=== PATIENT | female | born 1995 | race Caucasian/White ===

== ENCOUNTER 2021-05-08 15:13 | Emergency (ER) | payer OTHER, SELFPAY ==
[2021-05-08 15:23] VITALS: BP 100/57; PULSE 93; RESP 16; TEMP 36.6; O2SAT 100
--- NOTE | 2021-05-08 15:25 | ED.DENTAL ---
HPI - Dental/Oral General Chief complaint: Dental/Oral Stated complaint: toothache/el Source: patient and RN notes reviewed Limitations: no limitations History of Present Illness HPI Narrative: The patient, a smoker/nondrinker, presents with tooth ache. Patient states she has 1/2-week worsening of half year history of intermittent left upper and fourth molar discomfort. No fever, hoarseness, trismus, visible swelling; symptoms are mild and she has a dental appointment in the next week or 2. Related Data Allergies Allergy/AdvReac Type Severity Reaction Status Date / Time No Known Allergies Allergy Verified 05/08/21 15:26 Review of Systems Review of Systems: General/Constitutional: No weight loss,fever Eyes: N0: Redness,discharge Ears/Nose/Throat: No: Epistaxis,ear discharge Respiratory: Denies: Hemoptysis Gastrointestinal: No Vomiting, Bleeding-rectal Skin: No Lumps, eruption Neurologic: No Focal Weakness,Sz Hematologic: Denies: Petechiae/Purpura Psychiatric: No: Suicida ideationl All Other Systems: Reviewed and Negative PMFSH Social History Social History Smoking status: Current every day smoker Alcohol intake: never Comments At time of signature, agree with nursing past medical, surgical, social and family history. There is no relevant family history pertinent to the presenting complaint Exam Narrative: General Appearance: Well appearing, Well nourished, EYE: PERRLA, EOMI, Conjunctiva clear Ears: External ear normal, Auditory canal normal Nose: Normal nose Mouth/Throat: Normal appearing (with out jaw swelling), Normal lips, MM moist, Uvula midline (scattered dental caries and fillings,, with rare fracture) Neck: Supple, No adenopathy Respiratory: Airway patent, No respiratory distress, Clear to auscultation Cardiovascular: RRR Musculoskeletal: Full ROM, Non tender, Normal strength Spine/Back: Normal ROM Skin: Warm, Dry, Normal color Neurological: A&O x3, Speech clear, CN II-XII intact Psychiatric: Normal mood, Normal affect Course Vital Signs Vital signs: Vital Signs Temperature 98 F 05/08/21 15:23 Pulse Rate 93 05/08/21 15:23 Respiratory Rate 16 05/08/21 15:23 Blood Pressure 100/57 L 05/08/21 15:23 Pulse Oximetry 100 05/08/21 15:23 Temperature 98 F 05/08/21 15:23 Pulse Rate 93 05/08/21 15:23 Respiratory Rate 16 05/08/21 15:23 Blood Pressure 100/57 L 05/08/21 15:23 Pulse Oximetry 100 05/08/21 15:23 Discharge Plan Discharge Clinical Impression: Gingivitis, Toothache Patient Disposition: Home, Self-Care Condition: Stable Instructions: Toothache (ED) Prescriptions: New lidocaine HCl [Lidocaine Viscous] 2 % solution 5 ml MUCOUS MEM QID PRN (Reason: pain) Qty: 100 RF: 0 amoxicillin 875 mg tablet 875 mg PO Q12H Qty: 14 RF: 0 xayvmyetys-cxlzrjvhuqrgn-aydy [Fioricet] 50-300-40 mg capsule 1 cap PO TID PRN (Reason: pain) Qty: 14 RF: 0 Follow-up/Referrals: UNKNOWN,DOCTOR [Primary Care Provider] -
== END 2021-05-08 15:36 | disposition home or self-care (01) ==
LOC: EXPGLEN 15:18
PROVIDERS: Emergency Provider Emergency Medicine
DX: K08.89 Other specified disorders of teeth and supporting structures (principal); K05.10 Chronic gingivitis, plaque induced; F17.200 Nicotine dependence, unspecified, uncomplicated
CPT/HCPCS: 99213; G0463

== ENCOUNTER 2023-10-18 08:55 | Observation (INO) | payer OTHER, SELFPAY ==
[2023-10-18] VITALS (37 sets, daily range): BP systolic 96–116; BP diastolic 52–81; PULSE 68–103; RESP 12–29; TEMP 36.6–36.8; O2SAT 91–100
--- NOTE | ~2023-10-18 | US_ITS ---
EXAMINATION: US abdomen limited DATE: 10/18/2023 09:49 INDICATION: Right upper quadrant abdominal tenderness. TECHNIQUE: Multiple grayscale and Doppler ultrasound images of the abdomen were obtained. COMPARISON: CT abdomen and pelvis 02/05/2014 FINDINGS: The visualized portions of the head, body, and tail of the pancreas are normal. Again seen is focal steatosis adjacent to the falciform ligament. There is normal flow in main portal vein. The gallbladder is normal in size and contains sludge. No gallstones or gallbladder wall thickening. Ther e is no sonographic Fuentes sign. The common duct is normal and measures 4 mm. IMPRESSION: 1. No evidence of acute cholecystitis. Reviewed, dictated and finalized at location [facility]. [facility]
--- NOTE | ~2023-10-18 | US_ITS ---
EXAMINATION: US OB <= 14 weeks fetus DATE: 10/18/2023 09:49 INDICATION: Abdominal pain with nausea and vomiting during the transition from the first the second t ester of TECHNIQUE: Real-time pelvic ultrasound utilizing transabdominal probe was performed. The james mejia radiologist was not present for the study. COMPARISON: None. FINDINGS: The uterus measures approximately 14 x 9 x 11 cm. There is an intrauterine gestational sac. Single l iving fetus within the gestational sac. The crown rump length measures 6.0 cm, which correlates with an estimated gestational age of 12 weeks and 4 days. heart motion is identified measuring 148 b eats per minute (bpm) by M-mode Doppler. Bilateral adnexa are unremarkable. There is no free fluid in the pelvis. IMPRESSION: 1. Single living fetus with heart rate of 148 bpm. 2. Gestational age by ultrasound of 12 weeks 4 day(s) +/- 1 week and 1 day with ultrasound estimated date of delivery ([facility]) of 04/27/2024. Reviewed, dictated and finalized at location A. [facility] IMPRESSION: 1. Single living fetus with heart rate of 148 bpm. 2. Gestational age by ultrasound of 12 weeks 4 day(s) +/- 1 week and 1 day wit h ultrasound estimated date of delivery ([facility]) of 04/27/2024.
--- NOTE | 2023-10-18 09:17 | ED.GENADULT ---
HPI - General Adult General Chief complaint: Abdominal Pain <VIK Suggs Last Filed: 10/18/23 14:14> Stated complaint: abd pain, 12 weeks preg <VIK Suggs Last Filed: 10/18/23 14:14> Time Seen by Provider: 10/18/23 09:00 <Mukesh Trotter PA-C - Last Filed: 10/18/23 14:14> Source: patient <VIK Suggs Last Filed: 10/18/23 14:14> Mode of arrival: ambulatory <VIK Suggs Filed: 10/18/23 14:14> Limitations: no limitations <VIK Suggs Filed: 10/18/23 14:14> History of Present Illness HPI narrative: This is a 27-year-old female who is approximately 12 weeks who presents to the ED for chief complaint of abdominal pain for the past 3 days. Reports intermittent in nature and usually located in the left upper quadrant. Reports that it radiates to the back. Rates the pain 4 or 5/10. Associated with nausea and many episodes of vomiting per day. Denies vaginal bleeding, vaginal discharge. Denies urinary symptoms. States she feels very dehydrated with decreased bowel movements and decreased urinary output. Denies numbness, weakness, urinary symptoms. She reports history of pancreatitis during her last and states this feels similar. She follows with OB Dr. Wang in [place]. <Mukesh Trotter PA-C - Last Filed: 10/18/23 14:14> Related Data Home medications: Home Medications Medication Instructions Recorded Confirmed No Home Medications 10/18/23 10/18/23 <VIK Suggs Last Filed: 10/18/23 14:14> Allergies/adverse reactions: Allergies Allergy/AdvReac Type Severity Reaction Status Date / Time No Known Allergies Allergy Verified 09/29/23 09:30 <VIK Suggs Last Filed: 10/18/23 14:14> Review of Systems Review of Systems: All systems as dictated in HPI <VIK Suggs Last Filed: 10/18/23 14:14> [facility] Surgical History Surgical History: Surgical History H/O eye surgery as child <Mukesh Trotter PA-C - Last Filed: 10/18/23 14:14> Social History Social History: Social History Smoking status: Former smoker Tobacco type: cigarettes Second hand tobacco smoke exposure: No Smoking end date: 08/29/23 Alcohol intake: never Substance use: never Substance use type: marijuana Other substance usage details: daily Do You Feel Safe in your Home?: Yes Lack of Transportation: No Lack of Food: Never True Current Housing: I Have Housing Concerned About Future Housing: No Difficulty Paying Gas/Electric Bills: No Difficulty Paying for Meds: No Currently Unemployed: No Education: High School Diploma/GED Difficulty w/ Childcare or Family Care: No Living arrangements: other Additional living arrangements comments: single Occupation/Education: occupation Additional occupation/education comments: stay at home mom Gender identity (if verbalized by the patient): Female Sexual Orientation (if Verbalized by the Patient): Straight or Heterosexual Spiritual care concerns: No <Mukesh Trotter PA-C - Last Filed: 10/18/23 14:14> Exam Narrative: GENERAL: Well-appearing, well-nourished, and in no acute distress. HEAD: Normocephalic, atraumatic. EYES: PERRLA and EOMI. ENT: Nares clear, no rhinorrhea or epistaxis. Mucous membranes moist. Oropharynx without tonsillar hypertrophy exudate or other lesions. NECK: Supple. No adenopathy or masses. CHEST: No respiratory distress. Clear to auscultation. No wheezes rales or rhonchi HEART: Regular rate and rhythm. No murmur heard. Normal peripheral pulses. ABDOMEN: Moderate right upper quadrant and left upper quadrant tenderness. Soft, nondistended, normal active bowel sounds. MSK: Normal range of motion. No edema. SKIN: Warm, dry, no rash. NEURO: Alert and oriented x3. No
[2023-10-18] MEDS: ONDANSETRON INJ 4 MG/2 ML VIAL IV PUSH ×2 (09:42→15:27)
[2023-10-18] MEDS: SODIUM CHLORIDE 0.9% IV 1,000 ML 999 ML IV CONT ×2 (09:42→10:25)
[2023-10-18 09:48] LABS: Basophils Percent Auto 0.1 % (0.2-1.2); Eosinophils Percent Auto 0.1 % (0-4.4); Hematocrit 43.5 % (37.0-47.0); Hemoglobin 15.1 g/dL (12.0-15.0); Immature Granulocyte Absolute 0.07 K/mm3 (0.00-0.031); Immature Granulocyte Percent A 0.4 % (0-0.5); Lymphocytes Absolute Auto 2.64 K/mm3 (0.9-3.2); Lymphocytes Percent Auto 16.2 % (18.3-44.2); Mean Corpuscular HGB Conc 34.7 g/dl (32-36); Mean Corpuscular Hemoglobin 30.1 pg (26-34); Mean Corpuscular Volume 86.8 fl (80-100); Mean Platelet Volume 9.9 fl (7.4-10.4); Monocytes Absolute Auto 1.8 K/mm3 (0.1-0.6); Monocytes Percent Auto 10.9 % (2.6-8.5); Neutrophils Absolute Auto 11.8 K/mm3 (1.3-6.7); Neutrophils Percent Auto 72.3 % (45.5-73.1); Platelet Count Result 323 k/mm3 (150-375); Red Blood Count 5.01 M/mm3 (4.2-5.4); Red Cell Distribution Width 11.9 % (11.5-14.5); White Blood Count 16.3 K/mm3 (4.5-10.0)
[2023-10-18 10:03] LABS: Alanine Aminotransferase 50 U/L (6-35); Albumin Level 5.1 g/dL (3.5-5.1); Alkaline Phosphatase 55 U/L (38-126); Anion Gap 11 mmol/L (8-16); Aspartate Amino Transferase 41 U/L (14-36); Bilirubin,Total 1.4 mg/dL (0.2-1.3); Blood Urea Nitrogen 23 mg/dL (7-17); Calcium 10.1 mg/dL (8.4-10.2); Carbon Dioxide 38 mmol/L (22-30); Chloride 77 mmol/L (98-107); Estimated Glomerular Filt Rate > 60; Glucose 123 mg/dL (65-110); Lipase 121 U/L (23-300); Potassium 2.1 mmol/L (3.4-5.0); Sodium 126 mmol/L (137-145)
--- NOTE | 2023-10-18 10:03 | ECG_ITS ---
Measurements Intervals [place] Rate: 74 P: 66 VA: 168 QRS: 36 QRSD: 90 T: 31 QT: 394 QTc: 440 Interpretive Statements SINUS RHYTHM POSSIBLE LEFT ATRIAL ENLARGEMENT [-0.1mV P-WAVE IN V1/V2] NO PREVIOUS ECG AVAILABLE FOR COMPARISON Electronically Signed On 10-18-2023 13:51:29 ANALYTICAL LAB TECHNICIAN by Amrik Moise M.D.
[2023-10-18] MEDS: POTASSIUM CHLORIDE INJ 40 MEQ in SODIUM CHLORIDE 0.9% IV 500 ML 130 MEQ IVPB ×2 (10:26→18:13)
[2023-10-18] MEDS: MORPHINE SULFATE (*CRX) 4 MG/ML INJ IV PUSH ×2 (10:30→15:51)
[2023-10-18 11:09] LABS: Appearance Urine Cloudy (Clear); Bacteria Urine Rare /hpf; Bilirubin Urine 1+ (Negative); Blood Urine Negative (Negative); Color Urine Dark Yellow (Yellow); Glucose Urine UA Negative (Negative); Ketones Urine 3+ mg/dL (Negative); Leukocyte Esterase Ur Negative LEU/UL (Negative); Mucus Urine Present /lpf; Need Manual Microscopic Reviewed; Nitrate Urine Negative (Negative); Non Pathogenic Casts >20; Protein Urine 2+ mg/dL (Negative); Specific Grav Ur 1.028 (1.001-1.035); Squamous Epithelial Cell Urine Moderate /hpf (Few)
[2023-10-18 11:13] LABS: Add Urine Microscopic? YES
[2023-10-18] MEDS: SODIUM CHLORIDE 0.9% IV 1,000 ML 30 ML IV CONT (11:46)
[2023-10-18] MEDS: SODIUM CHLORIDE 0.9% IV 1,000 ML 125 ML IV CONT (15:28)
[2023-10-18 17:02] LABS: Potassium 2.5 mmol/L (3.4-5.0)
--- NOTE | 2023-10-18 17:04 | PM.CNGS ---
Assessment and Plan Assessment and plan (1) Abdominal pain: Code(s): R10.9 - Unspecified abdominal pain Status: Acute Assessment and Plan: LUQ abdominal pain during at 12 weeks gestation. Unclear etiology. US does not suggest acute cholecystitis and she is not having RUQ abdominal pain or tenderness. It is more LUQ pain and tenderness, which would be atypical for a biliary cause. Agree with IV antibiotics and monitoring. Will allow a clear liquid diet and can advance as tolerated if her nausea improves. Repeat labs again tomorrow. (2) Gallbladder sludge: Code(s): K82.8 - Other specified diseases of gallbladder Status: Acute Assessment and Plan: Noted on ultrasound with no other findings to suggest acute cholecystitis. (3) Elevated liver enzymes: Code(s): R74.8 - Abnormal levels of other serum enzymes Status: Acute (4) Acute hypokalemia: Code(s): E87.6 - Hypokalemia Status: Acute Assessment and Plan: Potassium 2.1, she is receiving replacement IV, continue to monitor labs and replace as needed (5) Dehydration: Code(s): E86.0 - Dehydration Status: Acute Assessment and Plan: Continue IV fluids, monitor labs Plan I have discussed the patient's case and plan of care with Dr. Lugo. History of Present Illness Consult details Consult date: 10/18/23 Reason for consult: other (Right upper quadrant abdominal pain) Requesting physician: Mukesh Trotter PA-C Narrative: This is a 27-year-old woman who is 12 weeks gestation, who we have been asked to see for right upper quadrant abdominal pain. She reports noticing pain that is worse at night. This has been ongoing for about 2-3 days. She has not eaten in 2-3 days due to the pain. She reports to me that her pain is in the epigastric area and left upper quadrant, and radiates to her mid back. She reports nausea and vomiting multiple times per day. She reports having similar pain in the past when she had pancreatitis in 2020 during a . At that time, they were unsure of the cause of her pancreatitis. She denies having a known history of gallstones or sludge. Due to her persistent symptoms and inability to eat or drink, she presented to the ER for further evaluation today. [place] [address], potassium 2.1, sodium 126, chloride 77, carbon dioxide 38, BUN 23, creatinine 0.9, total bilirubin 1.4, AST 41, ALT 50, alk-phos 55, and lipase 121. Urinalysis does not suggest UTI. Right upper quadrant abdominal ultrasound shows gallbladder sludge, but no other abnormal findings of the gallbladder or evidence to suggest acute cholecystitis. Normal common bile duct. No sonographic Fuentes sign. She is seen in the ER. She reports her abdominal pain has improved. No other complaints at this time. Review of Systems Review of Systems: All systems reviewed & are unremarkable except as noted in HPI and below [facility] Surgical History Surgical History H/O eye surgery as child Social History Social History Smoking status: Former smoker Tobacco type: cigarettes Second hand tobacco smoke exposure: No Smoking end date: 08/29/23 Alcohol intake: never Substance use: never Substance use type: marijuana Other substance usage details: daily Do You Feel Safe in your Home?: Yes Lack of Transportation: No Lack of Food: Never True Current Housing: I Have Housing Concerned About Future Housing: No Difficulty Paying Gas/Electric Bills: No Difficulty Paying for Meds: No Currently Unemployed: No Education: High School Diploma/GED Difficulty w/ Childcare or Family Care: No Living arrangements: other Additional living arrangements comments: single Occupation/Education: occupation Additional occupation/education comments: stay at home mom
--- NOTE | 2023-10-18 17:08 | PM.IMHP ---
H&P: HPI History of Present Illness Date/Time: 10/18/23 17:08 Chief Complaint: N/V, Abdominal Pain Narrative: 27 y/o F presents here with upper abdominal pain with PMH IUGR and pancreatitis. Currently . Patient presents here with upper abdominal pain, nausea, vomiting, and dehydration for the past 3 days. Patient described abdominal pain as achy/burning/full sensation, intermittent, worse in the LUQ than the RUQ, and radiating into her mid back on the right. No alleviating or aggravating factors. Patient is currently with LMP of 07/22/23. . Receiving care with [facility], first visit on 09/29/23 - considering switch to an OB in [place]. Previous hx of IUGR, baby was delivered at [facility] and weighed close to 5 lbs. No currently experiencing any vaginal bleeding or discharge, no odor, no painful intercourse. No fever, chills, or body aches. Patient does not remember what type of food/meal she ate prior to onset of abdominal pain. No changes in her stool color. Last BM was 2 days ago, stool was hard/pellet like. Also endorsing generalized weakness and palpitations. Initial VS upon presentation: 97.8 F, HR 91, RR 16, 116/81, 100% on RA. ED workup showed moderate leukocytosis with WBC of 16.3, mildly elevated hemoglobin at 15.1, sodium of 126, potassium 2.1, creatinine 0.9, glucose 123, mildly elevated LFTs, lipase 121, UA not suggestive of UTI. US of Abdomen showed no evidence of acute cholecystitis. US showed single living fetus, arch are 148, gestational age by U/S 12 weeks for 4 days with DILLON of 04/27/2024. Review of Systems Review of Systems: All systems reviewed & are unremarkable except as noted in HPI and below PMFSH Surgical History Surgical History H/O eye surgery as child Social History Social History Smoking status: Former smoker Tobacco type: cigarettes Second hand tobacco smoke exposure: No Smoking end date: 08/29/23 Alcohol intake: never Substance use: never Substance use type: marijuana Other substance usage details: daily Do You Feel Safe in your Home?: Yes Lack of Transportation: No Lack of Food: Never True Current Housing: I Have Housing Concerned About Future Housing: No Difficulty Paying Gas/Electric Bills: No Difficulty Paying for Meds: No Currently Unemployed: No Education: High School Diploma/GED Difficulty w/ Childcare or Family Care: No Living arrangements: other Additional living arrangements comments: single Occupation/Education: occupation Additional occupation/education comments: stay at home mom Gender identity (if verbalized by the patient): Female Sexual Orientation (if Verbalized by the Patient): Straight or Heterosexual Spiritual care concerns: No Meds Home Medications and Allergies Home Medications Medication Instructions Recorded Confirmed Type No Home Medications 10/18/23 10/18/23 History Allergies Allergy/AdvReac Type Severity Reaction Status Date / Time No Known Allergies Allergy Verified 09/29/23 09:30 Vital Signs Vital Signs - 24 hr 10/18/23 08:59 10/18/23 11:05 10/18/23 08:58 Temperature 97.8 F Pulse Rate 91 72 Respiratory Rate 16 Blood Pressure 116/81 Pulse Oximetry 100 91 Oxygen Delivery Room Air 10/18/23 09:00 10/18/23 09:01 10/18/23 10:05 Temperature Pulse Rate 103 H Respiratory Rate 29 H Blood Pressure 116/81 112/80 Pulse Oximetry 99 Oxygen Delivery 10/18/23 10:15 10/18/23 10:30 10/18/23 10:32 Temperature Pulse Rate 75 84 90 Respiratory Rate 12 17 12 Blood Pressure 114/72 Pulse Oximetry Oxygen Delivery 10/18/23 10:45 10/18/23 11:00 10/18/23 11:01 Temperature Pulse Rate 90 75 72 Respiratory Rate 15 19 17 Blood Pressure 109/64 Pulse Oximetry Oxygen Delivery 10/18/23 11:02
[2023-10-18] MEDS: POTASSIUM CHLORIDE 20 MEQ PACKET (FOR LIQUID) 40 MEQ PO (17:39)
[2023-10-18] MEDS: PIPERACILLN/TAZ 3.375GM/NS50ML 3.375 GM/50 ML BAG IVPB ×2 (17:39→23:50)
--- NOTE | 2023-10-18 18:27 | WPDCN ---
Assessment and Plan Assessment and plan (1) Abdominal pain: Code(s): R10.9 - Unspecified abdominal pain Status: Acute (2) Dehydration: Code(s): E86.0 - Dehydration Status: Acute (3) Gallbladder sludge: Code(s): K82.8 - Other specified diseases of gallbladder Status: Acute Plan 1. Continue with IV hydration and electrolyte normalization 2. Continue diet as tolerated 3. Will add Pepcid current medications 4. No further need for obstetrical evaluation/treatment 5. Will f/u after d/c with patient...at present she is unsure if she will have PNC with us or in [facility] Data of Consult Date/Time: 10/18/23 18:27 Requesting Physician: Bert Eckert MD Primary Care Provider: Mansoor Wang, Consult Narrative Narrative: Naima King is a 27 year old female 3 para 2001 currently at 12 weeks gestation. Admitted through the emergency room with nausea and vomiting and abdominal pain. Ultrasound of gallbladder did not show any significant abnormalities, but due to continued pain and electrolyte abnormalities admitted for hydration and pain control. Seen earlier in emergency room with urinary tract infection which resolved nicely with antibiotics. Last office visit approximately 2 weeks ago at that time was doing well. Review of Systems Review of Systems: All systems reviewed & are unremarkable except as noted in HPI and below PMFSH Surgical History Surgical History H/O eye surgery as child Social History Social History Smoking status: Former smoker Tobacco type: cigarettes Second hand tobacco smoke exposure: No Smoking end date: 08/29/23 Alcohol intake: never Substance use: never Substance use type: marijuana Other substance usage details: daily Do You Feel Safe in your Home?: Yes Lack of Transportation: No Lack of Food: Never True Current Housing: I Have Housing Concerned About Future Housing: No Difficulty Paying Gas/Electric Bills: No Difficulty Paying for Meds: No Currently Unemployed: No Education: High School Diploma/GED Difficulty w/ Childcare or Family Care: No Living arrangements: other Additional living arrangements comments: single Occupation/Education: occupation Additional occupation/education comments: stay at home mom Gender identity (if verbalized by the patient): Female Sexual Orientation (if Verbalized by the Patient): Straight or Heterosexual Spiritual care concerns: No Meds Home Medications and Allergies Home Medications Medication Instructions Recorded Confirmed Type No Home Medications 10/18/23 10/18/23 History Allergies Allergy/AdvReac Type Severity Reaction Status Date / Time No Known Allergies Allergy Verified 09/29/23 09:30 Vital Signs Vital Signs - 24 hr 10/18/23 08:59 10/18/23 11:05 10/18/23 08:58 Temperature 97.8 F Pulse Rate 91 72 Respiratory Rate 16 Blood Pressure 116/81 Pulse Oximetry 100 91 Oxygen Delivery Room Air 10/18/23 09:00 10/18/23 09:01 10/18/23 10:05 Temperature Pulse Rate 103 H Respiratory Rate 29 H Blood Pressure 116/81 112/80 Pulse Oximetry 99 Oxygen Delivery 10/18/23 10:15 10/18/23 10:30 10/18/23 10:32 Temperature Pulse Rate 75 84 90 Respiratory Rate 12 17 12 Blood Pressure 114/72 Pulse Oximetry Oxygen Delivery 10/18/23 10:45 10/18/23 11:00 10/18/23 11:01 Temperature Pulse Rate 90 75 72 Respiratory Rate 15 19 17 Blood Pressure 109/64 Pulse Oximetry Oxygen Delivery 10/18/23 11:02 10/18/23 11:15 10/18/23 11:30 Temperature Pulse Rate 71 68 70 Respiratory Rate 17 22 H 19 Blood Pressure Pulse Oximetry Oxygen Delivery 10/18/23 11:31 10/18/23 11:45 10/18/23 12:00 Temperature Pulse Rate 71 71 71 Respiratory
[2023-10-18 20:29] LABS: Magnesium 2.4 mg/dL (1.6-2.3)
[2023-10-18] MEDS: FAMOTIDINE 20 MG TABLET PO (21:46)
[2023-10-18] MEDS: DOCUSATE SODIUM 100 MG CAPSULE PO (21:46)
[2023-10-18 22:50] LABS: Anion Gap 3 mmol/L (8-16); Blood Urea Nitrogen 12 mg/dL (7-17); Carbon Dioxide 28 mmol/L (22-30); Chloride 98 mmol/L (98-107); Estimated Glomerular Filt Rate > 60; Glucose 94 mg/dL (65-110); Potassium 2.9 mmol/L (3.4-5.0); Sodium 129 mmol/L (137-145)
[2023-10-18] MEDS: MORPHINE SULFATE (*CRX) 2 MG/ML INJ IV PUSH (23:49)
[2023-10-18] MEDS: CALCIUM CARBONATE (TUMS) 500 MG (200 MG ELEMENTAL) PO (23:49)
[2023-10-19] VITALS (9 sets, daily range): BP systolic 106–121; BP diastolic 55–80; PULSE 59–96; RESP 17–20; TEMP 36.8–36.9; O2SAT 100
[2023-10-19] MEDS: diphenhydrAMINE HCl INJ 50 MG/ML VIAL 25 MG IV PUSH ×2 (04:31→20:16)
[2023-10-19] MEDS: PIPERACILLN/TAZ 3.375GM/NS50ML 3.375 GM/50 ML BAG IVPB ×4 (05:24→23:28)
[2023-10-19] MEDS: SODIUM CHLORIDE 0.9% IV 1,000 ML 125 ML IV CONT ×2 (05:24→23:28)
[2023-10-19] MEDS: ONDANSETRON INJ 4 MG/2 ML VIAL IV PUSH ×3 (05:24→23:32)
[2023-10-19 05:39] LABS: Basophils Percent Auto 0.2 % (0.2-1.2); Eosinophils Percent Auto 0.2 % (0-4.4); Hematocrit 33.6 % (37.0-47.0); Hemoglobin 11.2 g/dL (12.0-15.0); Immature Granulocyte Absolute 0.06 K/mm3 (0.00-0.031); Immature Granulocyte Percent A 0.5 % (0-0.5); Lymphocytes Absolute Auto 3.19 K/mm3 (0.9-3.2); Lymphocytes Percent Auto 25.5 % (18.3-44.2); Mean Corpuscular HGB Conc 33.3 g/dl (32-36); Mean Corpuscular Hemoglobin 30.7 pg (26-34); Mean Corpuscular Volume 92.1 fl (80-100); Mean Platelet Volume 9.3 fl (7.4-10.4); Monocytes Absolute Auto 1.1 K/mm3 (0.1-0.6); Monocytes Percent Auto 8.9 % (2.6-8.5); Neutrophils Absolute Auto 8.1 K/mm3 (1.3-6.7); Neutrophils Percent Auto 64.7 % (45.5-73.1); Platelet Count Result 223 k/mm3 (150-375); Red Blood Count 3.65 M/mm3 (4.2-5.4); Red Cell Distribution Width 11.9 % (11.5-14.5); White Blood Count 12.5 K/mm3 (4.5-10.0)
[2023-10-19 05:48] LABS: Alanine Aminotransferase 30 U/L (6-35); Albumin Level 3.2 g/dL (3.5-5.1); Alkaline Phosphatase 33 U/L (38-126); Anion Gap 3 mmol/L (8-16); Aspartate Amino Transferase 25 U/L (14-36); Bilirubin,Total 0.9 mg/dL (0.2-1.3); Blood Urea Nitrogen 12 mg/dL (7-17); Carbon Dioxide 29 mmol/L (22-30); Chloride 99 mmol/L (98-107); Estimated Glomerular Filt Rate > 60; Glucose 90 mg/dL (65-110); Lipase 111 U/L (23-300); Potassium 2.9 mmol/L (3.4-5.0); Sodium 131 mmol/L (137-145)
[2023-10-19] MEDS: POTASSIUM CHLORIDE INJ 40 MEQ in SODIUM CHLORIDE 0.9% IV 500 ML 130 MEQ IVPB ×2 (08:40→14:28)
[2023-10-19] MEDS: FOLIC ACID 1 MG/0.2 ML INJ IV PUSH (08:41)
[2023-10-19] MEDS: DOCUSATE SODIUM 100 MG CAPSULE PO ×2 (08:41→20:15)
[2023-10-19] MEDS: FAMOTIDINE 20 MG TABLET PO ×2 (08:41→20:15)
[2023-10-19 09:50] LABS: Sodium Urine Random 70 meq/L
[2023-10-19 11:15] LABS: Hemoglobin A1C 5.3 % (<5.7)
--- NOTE | 2023-10-19 12:01 | PM.PNGS ---
Progress Note: A&P Assessment and Plan (1) Cholecystitis: Code(s): K81.9 - Cholecystitis, unspecified Status: Acute Assessment and Plan: exam improved, low fat diet, home soon if mary diet Subjective Subjective Date/Time Seen: 10/19/23 12:01 Interval history: feels better today, mary clears, little to no pain Review of Systems Review of Systems: All systems reviewed & are unremarkable except as noted in HPI and below Exam Const: General: cooperative, comfortable and no acute distress Resp: Auscultation: clear to auscultation bilaterally Cardio: Rate: regular rate Rhythm: regular rhythm GI: Inspection: normal to inspection and non-distended GI Palp: Yes abdominal tenderness, Yes Soft to palpation, Yes Tenderness to palpation present (GI), No Guarding due to palpation present (GI) and No Rigid due to palpation Objective Data Vital Signs Vital Signs: Vital Signs - 24 hr 10/18/23 12:15 10/18/23 12:30 10/18/23 12:31 Temperature Pulse Rate 73 76 100 Respiratory Rate 20 21 H 21 H Blood Pressure 114/67 Pulse Oximetry Oxygen Delivery 10/18/23 12:45 10/18/23 13:00 10/18/23 13:01 Temperature Pulse Rate 74 73 82 Respiratory Rate 19 19 16 Blood Pressure 100/62 Pulse Oximetry Oxygen Delivery 10/18/23 13:15 10/18/23 13:30 10/18/23 13:31 Temperature Pulse Rate 80 73 74 Respiratory Rate 17 21 H 20 Blood Pressure 96/52 L Pulse Oximetry Oxygen Delivery 10/18/23 13:45 10/18/23 14:00 10/18/23 14:15 Temperature Pulse Rate 82 78 96 Respiratory Rate 17 13 19 Blood Pressure Pulse Oximetry Oxygen Delivery 10/18/23 14:30 10/18/23 15:21 10/18/23 16:24 Temperature 36.6 C Pulse Rate 88 93 Respiratory Rate 20 20 Blood Pressure 111/56 L Pulse Oximetry 100 Oxygen Delivery Room Air 10/18/23 16:03 10/18/23 20:00 10/18/23 21:14 Temperature 36.8 C Pulse Rate 80 87 Respiratory Rate 17 Blood Pressure 114/53 L Pulse Oximetry 100 Oxygen Delivery Room Air 10/19/23 05:10 10/18/23 20:24 10/19/23 00:24 Temperature 36.8 C Pulse Rate 96 89 59 L Respiratory Rate 17 Blood Pressure 109/73 Pulse Oximetry 100 Oxygen Delivery 10/19/23 04:24 10/19/23 08:00 10/18/23 15:25 Temperature Pulse Rate 61 93 Respiratory Rate Blood Pressure 111/56 L Pulse Oximetry 100 Oxygen Delivery Room Air Intake/Output Intake/Output: Intake & Output 10/16/23 10/17/23 10/18/23 10/19/23 23:59 23:59 23:59 23:59 Intake Total 5020 1080 Output Total 200 Balance 5020 880 Meds/Results Medications: Active Medications Generic Name Dose Route Start Last Admin Trade Name Freq PRN Reason Stop Dose Admin Acetaminophen 650 mg 10/18/23 11:40 Acetaminophen 325 Mg Tablet PO Q4H PRN Mild Pain (1-3) or Fever Calcium Carbonate 200 mg 10/18/23 23:27 10/18/23 23:49 Calcium Carbonate (Tums) 500 Mg (200 Mg Elemental) PO 200 mg Q6H PRN Administration Indigestion Diphenhydramine HCl 25 mg 10/18/23 18:24 10/19/23 04:31 Diphenhydramine Hcl Inj 50 Mg/Ml Vial IV PUSH 25 mg Q6H PRN Administration Nausea And Vomiting Docusate Sodium 100 mg 10/18/23 21:00 10/19/23 08:41 Docusate Sodium 100 Mg Capsule PO 100 mg Q12HR STACIE Administration Famotidine 20 mg 10/18/23 21:00 10/19/23 08:41 Famotidine 20 Mg Tablet PO 20 mg Q12HR STACIE Administration Folic Acid 1 mg 10/19/23 09:00 10/19/23 08:41 Folic Acid 1 Mg/0.2 Ml Inj IV PUSH 1 mg QAM STACIE Administration Sodium Chloride 1,000 mls @ 125 mls/hr 10/18/23 11:40 10/19/23 05:24 Normal Saline Iv IV CONT 125 mls/hr .Q8H STACIE Administration Piperacillin/Tazobactam/Dextrose 3.375 gm in 50 mls @ 100 mls/hr 10/18/23 18:00 10/19/23 05:24 Zosyn 3.375 Gm/Ns 50 Ml IVPB 100 mls/hr Q6HR STACIE Administration Morphine Sulfate 2 mg 10/18/23 23:28 10/18/23 23:49 Morphine Sulfate (*Crx
[2023-10-19] MEDS: MORPHINE SULFATE (*CRX) 2 MG/ML INJ IV PUSH ×2 (12:43→23:31)
--- NOTE | 2023-10-19 14:07 | PM.IMPN ---
Progress Note: A&P Assessment and Plan (1) N&V (nausea and vomiting): Code(s): R11.2 - Nausea with vomiting, unspecified Status: Acute (2) Abdominal pain: Code(s): R10.9 - Unspecified abdominal pain Status: Acute (3) Acute hypokalemia: Code(s): E87.6 - Hypokalemia Status: Acute (4) Hyponatremia: Code(s): E87.1 - Hypo-osmolality and hyponatremia Status: Acute Plan N/V -currently 12 weeks , . No home meds -add folic acid 1 mg IV daily, transition to multivitamin or PO once tolerating solids-WBC 16.3, mild elevation in LFTs (AST 41, ALT 50) -Abdominal US: No evidence of acute cholecystitis. The gallbladder is normal in size and contains sludge. No gallstones or gallbladder wall thickening. There -IV fluids -advanced diet to low fat if tolerates can discharge home.? -GenSurgery consulted, Darby NAVARRETE and Parish PHILLIPS. Recs: No surgical intervention -US not indicative of acute choley -IV abx - Zosyn q6h -Antimetics -consult to shelving supervisor for education on foods to avoid - gallbladder/pancreatitis -Lipase WNL today Hypokalemia -K 2.1 -> 2.5->2.9 -continued to replenish -Daily BMP -suspect this is secondary to current N/V and IV fluid admin Hypo-osmolality and hyponatremia -Na 126 improving 131 -received 2L of NS with current infusion at 125 mL/hr -no neuro deficits at this time -suspect this is secondary to dehydration, N/V Code status: Full code per patient DVT prophylaxis: SCD Stress ulcer prophylaxis: Protonix 40 daily PT/OT notes: Ambulatory Disposition: Patient to discharge back home tomorrow if tolerating oral intake and electrolyte imbalances improved. -Patient's previous records reviewed on admission -ER notes reviewed in detail on admission -discussed all findings and current treatment plan with patient/Family/POA -Consultations reviewed for recommendations -Patient's disposition for safe discharge discussed with nurse case manager Dictation performed by [employer] direct speech recognition software, therefore farm adviser variants and typographical errors may occur. Time Spent With Patient Time with patient: 25 - 35 minutes Subjective Date/time seen: 10/19/23 14:07 Interval history: Chief Complaint: N/V, Abdominal Pain Narrative: 27 y/o F presents here with upper abdominal pain with PMH IUGR and pancreatitis. Currently . Patient presents here with upper abdominal pain, nausea, vomiting, and dehydration for the past 3 days. Patient described abdominal pain as achy/burning/full sensation, intermittent, worse in the LUQ than the RUQ, and radiating into her mid back on the right. No alleviating or aggravating factors. Patient is currently with LMP of 07/22/23. . Receiving care with [facility], first visit on 09/29/23 - considering switch to an OB in [place]. Previous hx of IUGR, baby was delivered at [facility] and weighed close to 5 lbs. No currently experiencing any vaginal bleeding or discharge, no odor, no painful intercourse. No fever, chills, or body aches. Patient does not remember what type of food/meal she ate prior to onset of abdominal pain. No changes in her stool color. Last BM was 2 days ago, stool was hard/pellet like. Also endorsing generalized weakness and palpitations. Initial VS upon presentation:? 97.8 F, HR 91, RR 16, 116/81, 100% on RA. ED workup showed moderate leukocytosis with WBC of 16.3, mildly elevated hemoglobin at 15.1, sodium of 126, potassium 2.1, creatinine 0.9, glucose 123, mildly elevated LFTs, lipase 121, UA not suggestive of UTI. US of Abdomen showed no evidence of acute cholecystitis. US showed single living fetus, arch are 148, gestational age by U/S 12 weeks for 4 days with DILLON of 04/27/2024. 10/19: Patient overall improving today tolerating clear liquids will advance diet. Lipase WNL today still hypokalemic replensihed with 80Meq. Patient reports mild AB
[2023-10-19 22:00] LABS: Anion Gap 3 mmol/L (8-16); Blood Urea Nitrogen 6 mg/dL (7-17); Calcium 7.7 mg/dL (8.4-10.2); Carbon Dioxide 21 mmol/L (22-30); Chloride 110 mmol/L (98-107); Estimated Glomerular Filt Rate > 60; Glucose 88 mg/dL (65-110); Potassium 3.3 mmol/L (3.4-5.0); Sodium 134 mmol/L (137-145)
[2023-10-20] VITALS: PULSE 89
[2023-10-20 04:00] VITALS: PULSE 56
[2023-10-20 05:29] VITALS: BP 110/56; PULSE 77; RESP 18; TEMP 36.9; O2SAT 98
[2023-10-20] MEDS: PIPERACILLN/TAZ 3.375GM/NS50ML 3.375 GM/50 ML BAG IVPB (06:23)
[2023-10-20 06:32] LABS: Anion Gap 3 mmol/L (8-16); Blood Urea Nitrogen 3 mg/dL (7-17); Calcium 7.7 mg/dL (8.4-10.2); Carbon Dioxide 21 mmol/L (22-30); Chloride 108 mmol/L (98-107); Estimated Glomerular Filt Rate > 60; Glucose 84 mg/dL (65-110); Potassium 3.5 mmol/L (3.4-5.0); Sodium 132 mmol/L (137-145)
[2023-10-20] MEDS: DOCUSATE SODIUM 100 MG CAPSULE PO (08:39)
[2023-10-20] MEDS: FOLIC ACID 1 MG/0.2 ML INJ IV PUSH (08:39)
[2023-10-20] MEDS: SODIUM CHLORIDE 0.9% IV 1,000 ML 125 ML IV CONT (08:39)
[2023-10-20] MEDS: FAMOTIDINE 20 MG TABLET PO (08:39)
--- NOTE | 2023-10-20 13:09 | PM.PNGS ---
Progress Note: A&P Assessment and Plan (1) Gallbladder sludge: Code(s): K82.8 - Other specified diseases of gallbladder Status: Acute Assessment and Plan: exam benign, cont low fat diet, will try to get through and will need interval nazia s/p delivery Subjective Subjective Date/Time Seen: 10/20/23 13:09 Interval history: feels good, mary low fat diet, no further N/V, abd pain Review of Systems Review of Systems: All systems reviewed & are unremarkable except as noted in HPI and below Exam Const: General: cooperative, comfortable and no acute distress Resp: Auscultation: clear to auscultation bilaterally Cardio: Rate: regular rate Rhythm: regular rhythm GI: Inspection: normal to inspection and non-distended GI Palp: No abdominal tenderness, Yes Soft to palpation, No Tenderness to palpation present (GI), No Guarding due to palpation present (GI) and No Rigid due to palpation Objective Data Vital Signs Vital Signs: Vital Signs - 24 hr 10/19/23 13:10 10/19/23 16:00 10/19/23 20:10 Temperature 36.8 C 36.9 C Pulse Rate 86 75 74 Respiratory Rate 20 18 Blood Pressure 121/80 106/55 L Pulse Oximetry 100 100 Oxygen Delivery 10/19/23 20:00 10/20/23 00:00 10/20/23 04:00 Temperature Pulse Rate 73 89 56 L Respiratory Rate Blood Pressure Pulse Oximetry Oxygen Delivery 10/20/23 05:29 10/20/23 08:00 Temperature 36.9 C Pulse Rate 77 Respiratory Rate 18 Blood Pressure 110/56 L Pulse Oximetry 98 Oxygen Delivery Room Air Intake/Output Intake/Output: Intake & Output 10/17/23 10/18/23 10/19/23 10/20/23 23:59 23:59 23:59 23:59 Intake Total 5020 2640 1118 Output Total 200 Balance 5020 2440 1118 Meds/Results Radiology Results: ITS Impressions Abdomen Ultrasound 10/18/23 09:51 IMPRESSION: 1. No evidence of acute cholecystitis. Ultrasound 10/18/23 09:51 IMPRESSION: 1. Single living fetus with heart rate of 148 bpm. 2. Gestational age by ultrasound of 12 weeks 4 day(s) +/- 1 week and 1 day with ultrasound estimated date of delivery (DILLON) of 04/27/2024. Labs Labs: Laboratory Results - last 24 hr 10/19/23 10/20/23 21:26 05:32 Sodium 134 L 132 L Potassium 3.3 L 3.5 Chloride 110 H 108 H Carbon Dioxide 21 L 21 L Anion Gap 3 L 3 L BUN 6 L D 3 L Creatinine 0.60 L 0.60 L Estim Creat Clear Calc Not Reportable Not Reportable Estimated GFR > 60 > 60 Glucose 88 84 Calcium 7.7 L 7.7 L
--- NOTE | 2023-10-20 13:15 | PM.DS ---
DS: Admitting Diagnosis Discharge Date 10/20/23 Admitting Diagnosis N/V DS: Discharge Diagnosis Discharge Diagnosis (1) N&V (nausea and vomiting): Qualifiers: Vomiting type: unspecified Qualified Code(s): R11.2 - Nausea with vomiting, unspecified Code(s): R11.2 - Nausea with vomiting, unspecified Status: Acute (2) Abdominal pain: Qualifiers: Abdominal location: generalized Qualified Code(s): R10.84 - Generalized abdominal pain Code(s): R10.9 - Unspecified abdominal pain Status: Acute (3) Acute hypokalemia: Code(s): E87.6 - Hypokalemia Status: Acute (4) Hyponatremia: Code(s): E87.1 - Hypo-osmolality and hyponatremia Status: Acute Plan N/V -currently 12 weeks , . No home meds -Zofran PRN -Encourage Oral Hydration -F/U with OBGYN as scheduled -Advance diet as tolerated Hypokalemia -Corrected -F/U BMP with OBGYN DS: Summary Hospital Course Reason for hospitalization: N/V Dehydration electrolyte imbalance Hospital Course: Chief Complaint: N/V, Abdominal Pain Narrative: 27 y/o F presents here with upper abdominal pain with PMH IUGR and pancreatitis. Currently . Patient presents here with upper abdominal pain, nausea, vomiting, and dehydration for the past 3 days. Patient described abdominal pain as achy/burning/full sensation, intermittent, worse in the LUQ than the RUQ, and radiating into her mid back on the right. No alleviating or aggravating factors. Patient is currently with LMP of 07/22/23. . Receiving care with [facility], first visit on 09/29/23 - considering switch to an OB in [place]. Previous hx of IUGR, baby was delivered at [facility] and weighed close to 5 lbs. No currently experiencing any vaginal bleeding or discharge, no odor, no painful intercourse. No fever, chills, or body aches. Patient does not remember what type of food/meal she ate prior to onset of abdominal pain. No changes in her stool color. Last BM was 2 days ago, stool was hard/pellet like. Also endorsing generalized weakness and palpitations. Initial VS upon presentation:? 97.8 F, HR 91, RR 16, 116/81, 100% on RA. ED workup showed moderate leukocytosis with WBC of 16.3, mildly elevated hemoglobin at 15.1, sodium of 126, potassium 2.1, creatinine 0.9, glucose 123, mildly elevated LFTs, lipase 121, UA not suggestive of UTI. US of Abdomen showed no evidence of acute cholecystitis. US showed single living fetus, arch are 148, gestational age by U/S 12 weeks for 4 days with DILLON of 04/27/2024. 10/19:? Patient overall improving today tolerating clear liquids will advance diet.? Lipase WNL today still hypokalemic replenished with 80Meq.? Patient reports mild ABD pain but tolerable at this time.? F/U labs in the AM and if tolerating oral intake will discharge home. Patient seen and evaluated day of discharge labs stable and electrolytes corrected. Patient is tolerating oral intake including hydration and food. Patient denied any further Nausea or vomiting. Was discharged to home and will need to follow-up with her OBGYN. Patient sent with Zofran prescription for nausea and recommended daily vitamin. Status at Discharge Functional status at discharge: independent ambulation Overall status at discharge: patient is back to baseline Time Spent with Patient Time attestation: Total time spent providing and/or coordinating discharge services: Exam Narrative: Physical Exam: - GENERAL: Alert and oriented x 3. No acute distress. Well-nourished. - EYES: EOMI. No scleral icterus. PERRLA. - HENT: Moist mucous membranes. No cervical lymphadenopathy. - LUNGS: Clear to auscultation bilaterally. No accessory muscle use. - CARDIOVASCULAR: Regular rate and rhythm. No murmur. No JVD. S1-S2 - ABDOMEN: Soft, mild tenderness and non-distended. No palpable masses. - EXTREMITIES: No edema. Non-tender -SKIN
--- NOTE | 2023-10-20 14:52 | PCCCNOTE ---
On 10/20/23, the student, [Soha Quintana], provided care and completed [facility] documentation on this patient. I have reviewed the student's documentation and agree with the findings.
[2023-10-21 20:53] LABS: Osmolality, Urine 495 mOsm/kg (50-1200)
== END 2023-10-20 12:20 | disposition home or self-care (01) ==
LOC: ANHED 14:04 → ANH2MED 15:26
PROVIDERS: Emergency Medicine; Student in an Organized Health Care Education/Training Program; Admitting Provider Internal Medicine; Emergency Provider Physician Assistant; PCP Obstetrics & Gynecology; Visit Provider Internal Medicine
DX: O21.9 Vomiting of pregnancy, unspecified (principal); O99.281 Endocrine, nutritional and metabolic diseases complicating pregnancy, first trimester; E87.6 Hypokalemia; E87.1 Hypo-osmolality and hyponatremia; E86.0 Dehydration; O26.611 Liver and biliary tract disorders in pregnancy, first trimester; K82.8 Other specified diseases of gallbladder; O99.321 Drug use complicating pregnancy, first trimester; F12.90 Cannabis use, unspecified, uncomplicated; Z3A.12 12 weeks gestation of pregnancy; Z87.891 Personal history of nicotine dependence
CPT/HCPCS: 36415; 76705; 76801; 80048; 80053; 81001; 83036; 83690; 83735; 83930; 83935; 84132; 84300; 85025; 87086; 93005; 96361; 96365; 96366; 96375; 99285; A9270; G0378; G0379; J1200; J2270; J2405; J2543; J3480; J7030; J7040

== ENCOUNTER 2023-11-20 18:09 | Emergency (ER) | payer OTHER, SELFPAY ==
--- NOTE | ~2023-11-20 | US_ITS ---
Limited Abdominal Sonogram: Real-time sonographic imaging of the right upper quadrant was performed. Clinical History: Epigastric pain Findings: The liver appears normal with no evidence of mass lesion or bile duct dilatation. Main por zelalem vein demonstrates normal direction of flow. The gallbladder is well distended, and appears normal with no evidence of gallstone or wall thickening. The common bile duct measures 4 mm. There is mild prominence of main pancreatic duct at nearly 4 mm. Impression: Minimal prominence of main pancreatic duct at 4 mm. This is of uncertain clinical significance/etiolo gy. Consider CT to further evaluate the pancreas as indicated. Reviewed, dictated and finalized at [facility]. Impression: Minimal prominence of main pancreatic duct at 4 mm. This is of uncertain clinic al significance/etiology. Consider CT to further evaluate the pancreas as indic ated.
[2023-11-20 18:14] VITALS: BP 104/61; PULSE 99; RESP 18; TEMP 36.9; O2SAT 99
[2023-11-20 20:10] VITALS: BP 113/64; PULSE 77; RESP 24; O2SAT 100
[2023-11-20] MEDS: SODIUM CHLORIDE 0.9% IV 1,000 ML 999 ML IV CONT (20:30)
[2023-11-20] MEDS: ONDANSETRON INJ 4 MG/2 ML VIAL IV PUSH (20:33)
[2023-11-20] MEDS: MORPHINE SULFATE (*CRX) 4 MG/ML INJ IV PUSH ×2 (20:33→23:41)
[2023-11-20 20:41] LABS: Basophils Percent Auto 0.1 % (0.2-1.2); Eosinophils Percent Auto 0.1 % (0-4.4); Hematocrit 38.6 % (37.0-47.0); Immature Granulocyte Absolute 0.08 K/mm3 (0.00-0.031); Immature Granulocyte Percent A 0.5 % (0-0.5); Lymphocytes Absolute Auto 2.51 K/mm3 (0.9-3.2); Lymphocytes Percent Auto 16.6 % (18.3-44.2); Mean Corpuscular HGB Conc 33.7 g/dl (32-36); Mean Corpuscular Hemoglobin 31.3 pg (26-34); Mean Platelet Volume 9.7 fl (7.4-10.4); Monocytes Absolute Auto 1.1 K/mm3 (0.1-0.6); Monocytes Percent Auto 7.2 % (2.6-8.5); Neutrophils Absolute Auto 11.4 K/mm3 (1.3-6.7); Neutrophils Percent Auto 75.5 % (45.5-73.1); Platelet Count Result 258 k/mm3 (150-375); Red Blood Count 4.15 M/mm3 (4.2-5.4); White Blood Count 15.1 K/mm3 (4.5-10.0)
[2023-11-20 20:57] LABS: Alanine Aminotransferase 24 U/L (6-35); Albumin Level 4.3 g/dL (3.5-5.1); Alkaline Phosphatase 47 U/L (38-126); Anion Gap 8 mmol/L (8-16); Aspartate Amino Transferase 28 U/L (14-36); Bilirubin,Total 0.7 mg/dL (0.2-1.3); Blood Urea Nitrogen 13 mg/dL (7-17); Calcium 9.6 mg/dL (8.4-10.2); Carbon Dioxide 30 mmol/L (22-30); Chloride 95 mmol/L (98-107); Estimated CRCL calculation 111 ml/min; Estimated Glomerular Filt Rate > 60; Glucose 92 mg/dL (65-110); Lipase 873 U/L (23-300); Magnesium 2.1 mg/dL (1.6-2.3); Potassium 2.7 mmol/L (3.4-5.0); Sodium 133 mmol/L (137-145)
[2023-11-20 21:04] LABS: Troponin I < 0.012 ng/mL (0.000-0.034)
[2023-11-20 21:14] LABS: D Dimer 0.59 ug/mL (<0.48)
[2023-11-20] MEDS: KCL 20 MEQ/SW 100 ML 100 ML 50 MEQ IVPB (21:16)
--- NOTE | 2023-11-20 21:28 | ED.GENADULT ---
HPI - General Adult General Chief complaint: Abdominal Pain Stated complaint: abdominal pain 17 wk Time Seen by Provider: 11/20/23 19:25 History of Present Illness HPI narrative: Patient is a 27-year-old female who presents emergency department with chief complaint of left upper quadrant pain that is burning in sensation. The patient reports the pain radiates to her back and up into her chest. The patient reports that she is 17 weeks she does see an Ob over and all [facility] but was admitted at our facility on the October with possible of cholecystitis. The patient states she is unable to get comfortable reports the pain is not improved by anything reports she is feeling nauseated Related Data Allergies Allergy/AdvReac Type Severity Reaction Status Date / Time No Known Allergies Allergy Verified 11/20/23 18:17 [facility] Surgical History Surgical History H/O eye surgery as child Social History Social History Smoking status: Current every day smoker Tobacco type: cigarettes Second hand tobacco smoke exposure: No Smoking end date: 08/29/23 Alcohol intake: never Substance use: never Substance use type: marijuana Other substance usage details: daily Do You Feel Safe in your Home?: Yes Lack of Transportation: No Lack of Food: Never True Current Housing: I Have Housing Concerned About Future Housing: No Difficulty Paying Gas/Electric Bills: No Difficulty Paying for Meds: No Currently Unemployed: No Education: High School Diploma/GED Difficulty w/ Childcare or Family Care: No Living arrangements: other Additional living arrangements comments: single Occupation/Education: occupation Additional occupation/education comments: stay at home mom Gender identity (if verbalized by the patient): Female Sexual Orientation (if Verbalized by the Patient): Straight or Heterosexual Spiritual care concerns: No Course Vital Signs Vital signs: Vital Signs Temperature 36.9 C 11/20/23 18:14 Pulse Rate 99 11/20/23 18:14 Respiratory Rate 18 11/20/23 18:14 Blood Pressure 104/61 11/20/23 18:14 Pulse Oximetry 99 11/20/23 18:14 Oxygen Delivery Room Air 11/20/23 18:14 Temperature 36.9 C 11/20/23 18:14 Pulse Rate 75 11/21/23 06:30 Respiratory Rate 13 11/21/23 06:30 Blood Pressure 106/66 11/21/23 06:30 Pulse Oximetry 100 11/21/23 06:30 Oxygen Delivery Room Air 11/20/23 18:14 Medical Decision Making MDM Narrative Medical decision making narrative: Differential diagnosis includes pancreatitis, cholecystitis, choledocholithiasis, Laboratory studies were obtained on the patient showed a potassium of 2.7 urinalysis showed 4+ ketones lipase was elevated 873 Due to the elevated lipase and the hypokalemia the case was discussed with Dr. Islas who is currently on-call for OBGYN as the patient had been last been admitted over 31 days ago previously in discussion with Dr. Islas she recommended the patient be transferred to a higher level of care given the patient's primary OB is at [place] the case was discussed with [facility] transfer center who ultimately have the patient accepted to Dr. Galindo's service at [facility] and we are currently awaiting a bed. In discussion with the [facility] hospitalist it may be of extended period of time until a bed becomes available While waiting for a bed have [facility] the case was discussed with the Maternal Medicine Service at [facility] the patient was accepted at [facility] by Dr Tompkins. Vital Signs Vital Signs: Vital Signs Temperature 36.9 C 11/20/23 18:14 Pulse Rate 99 11/20/23 18:14 Respiratory Rate 18 11/20/23 18:14 Blood Pressure 104/61 11/20/23 18:14 Pulse Oximetry 99 11/20/23 18:14 Oxygen Delivery Room Air 11/20/23 18:14 Temperature 36.9 C 11/20/23 18:14 Pu
[2023-11-20 22:24] VITALS: BP 100/57; PULSE 73; RESP 20; O2SAT 100
[2023-11-20 22:29] LABS: Appearance Urine Clear (Clear); Bacteria Urine None Seen /hpf; Bilirubin Urine Negative (Negative); Blood Urine Negative (Negative); Color Urine Yellow (Yellow); Glucose Urine UA Negative (Negative); Ketones Urine 4+ mg/dL (Negative); Leukocyte Esterase Ur Trace LEU/UL (Negative); Nitrate Urine Negative (Negative); Non Pathogenic Casts 0-2; Protein Urine 1+ mg/dL (Negative); Specific Grav Ur 1.027 (1.001-1.035); Squamous Epithelial Cell Urine Few /hpf (Few); WBC Urine 0-5 /hpf
[2023-11-20 22:31] LABS: Add Urine Microscopic? YES
--- NOTE | 2023-11-20 23:32 | PC.NURSE ---
EDP Dr. Markie JAMES 4mg Morphine IVP.
--- NOTE | 2023-11-21 01:42 | PC.NURSE ---
This RN spoke bryant Haile from [facility] xfr center. All questions answered. No beds available at this time. Pt on wait list.
[2023-11-21 02:38] VITALS: BP 108/57; PULSE 63; RESP 15; O2SAT 97
[2023-11-21] MEDS: MORPHINE SULFATE (*CRX) 4 MG/ML INJ IV PUSH ×3 (03:26→07:13)
--- NOTE | 2023-11-21 03:26 | PC.NURSE ---
EDP Dr. Markie JAMES 4mg morphine IVP.
[2023-11-21 03:29] VITALS: BP 103/63; PULSE 88; RESP 15; O2SAT 100
--- NOTE | 2023-11-21 03:38 | PC.NURSE ---
Consent signed at this time. Pt provided ice chips - keisha Aden.
[2023-11-21] MEDS: ONDANSETRON INJ 4 MG/2 ML VIAL IV PUSH ×2 (04:00→06:23)
[2023-11-21 05:20] VITALS: BP 110/73; PULSE 89; RESP 18; O2SAT 98
--- NOTE | 2023-11-21 06:07 | PC.NURSE ---
Pt moved from Rm H3 to Rm 1 and placed onto hospital bed. EDP notified of pt pain that is starting to come back. EDP Dr. Aden to be putting in medication orders.
[2023-11-21] MEDS: SODIUM CHLORIDE 0.9% IV 1,000 ML 150 ML IV CONT (06:27)
[2023-11-21 06:30] VITALS: BP 106/66; PULSE 75; RESP 13; O2SAT 100
[2023-11-21 06:30] LABS: Basophils Percent Auto 0.1 % (0.2-1.2); Eosinophils Absolute Auto 0.1 K/mm3 (0-0.3); Eosinophils Percent Auto 0.4 % (0-4.4); Hematocrit 38.4 % (37.0-47.0); Hemoglobin 12.2 g/dL (12.0-15.0); Immature Granulocyte Absolute 0.11 K/mm3 (0.00-0.031); Immature Granulocyte Percent A 0.8 % (0-0.5); Lymphocytes Absolute Auto 3.63 K/mm3 (0.9-3.2); Lymphocytes Percent Auto 26.1 % (18.3-44.2); Mean Corpuscular HGB Conc 31.8 g/dl (32-36); Mean Corpuscular Volume 97.7 fl (80-100); Mean Platelet Volume 9.6 fl (7.4-10.4); Monocytes Absolute Auto 1.1 K/mm3 (0.1-0.6); Monocytes Percent Auto 7.5 % (2.6-8.5); Neutrophils Absolute Auto 9.1 K/mm3 (1.3-6.7); Neutrophils Percent Auto 65.1 % (45.5-73.1); Platelet Count Result 218 k/mm3 (150-375); Red Blood Count 3.93 M/mm3 (4.2-5.4); Red Cell Distribution Width 12.6 % (11.5-14.5); White Blood Count 13.9 K/mm3 (4.5-10.0)
[2023-11-21 06:44] LABS: Alanine Aminotransferase 21 U/L (6-35); Albumin Level 3.9 g/dL (3.5-5.1); Alkaline Phosphatase 36 U/L (38-126); Anion Gap 7 mmol/L (8-16); Aspartate Amino Transferase 25 U/L (14-36); Bilirubin,Total 0.8 mg/dL (0.2-1.3); Blood Urea Nitrogen 12 mg/dL (7-17); Calcium 8.6 mg/dL (8.4-10.2); Carbon Dioxide 23 mmol/L (22-30); Chloride 102 mmol/L (98-107); Estimated CRCL calculation 159 ml/min; Estimated Glomerular Filt Rate > 60; Glucose 82 mg/dL (65-110); Lipase 197 U/L (23-300); Sodium 132 mmol/L (137-145)
[2023-11-21] MEDS: METOCLOPRAMIDE HCL INJ 10 MG/2 ML VIAL IV PUSH (06:51)
--- NOTE | 2023-11-21 07:01 | PC.NURSE ---
[facility] to give report. Pt accepted at [facility]. Room 568. Report given to IVAN Burch.
[2023-11-21 07:15] VITALS: BP 109/90; PULSE 69; RESP 19; O2SAT 99
--- NOTE | 2023-11-21 07:19 | PC.NURSE ---
Report given to Jazmine LOVE at this time.
[2023-11-21 09:01] VITALS: BP 92/53; PULSE 81; RESP 17; TEMP 36.6; O2SAT 98
== END 2023-11-21 09:05 | disposition short-term general hospital (02) ==
PROVIDERS: Emergency Provider Emergency Medicine; PCP Obstetrics & Gynecology
DX: O99.612 Diseases of the digestive system complicating pregnancy, second trimester (principal); K85.90 Acute pancreatitis without necrosis or infection, unspecified; O99.282 Endocrine, nutritional and metabolic diseases complicating pregnancy, second trimester; E87.6 Hypokalemia; O26.892 Other specified pregnancy related conditions, second trimester; R10.12 Left upper quadrant pain; Z87.891 Personal history of nicotine dependence; Z3A.17 17 weeks gestation of pregnancy
CPT/HCPCS: 36415; 76705; 80053; 81001; 83605; 83690; 83735; 84484; 85025; 85380; 96361; 96365; 96366; 96374; 96375; 96376; 99285; J2270; J2405; J2765; J3480; J7030